=== PATIENT | male | born 1970 | race Two or more races ===

== ENCOUNTER 2021-08-08 09:22 | Emergency (ER) | payer OTHER ==
[~2021-08-08] VITALS: Ht 165.1 cm; Wt 12.7 kg
[2021-08-08] MEDS ORDERED: KETO10TA2 PO (13:23)
== END 2021-08-08 13:30 | disposition home or self-care (01) ==
LOC: ER 09:22
DX: S93.401A Sprain of unspecified ligament of right ankle, initial encounter (principal); W18.30XA Fall on same level, unspecified, initial encounter; Y93.9 Activity, unspecified; Y92.89 Other specified places as the place of occurrence of the external cause; Y99.9 Unspecified external cause status